=== PATIENT | male | born 1945 | race Caucasian/White ===

== ENCOUNTER 2017-04-25 14:30 | Emergency (ER) | payer MEDICARE | END 2017-04-25 17:01 | disposition home or self-care (01) | LOC: FTE 14:30 | DX: M79.671 Pain in right foot (principal); I12.9 Hypertensive chronic kidney disease with stage 1 through stage 4 chronic kidney disease, or unspecified chronic kidney disease; N18.9 Chronic kidney disease, unspecified; E11.22 Type 2 diabetes mellitus with diabetic chronic kidney disease; Z79.4 Long term (current) use of insulin; Z79.01 Long term (current) use of anticoagulants | CPT/HCPCS: 73630; 99283-25 ==

== ENCOUNTER 2018-06-07 06:18 | Observation (INO) | payer OTHER ==
[2018-06-07] MEDS: ASPIRIN 81 MG TAB PO (07:00)
[2018-06-07] MEDS: NITROGLYCERIN 2% 1 GM OINT PKT TD (07:00)
[2018-06-07] MEDS ORDERED: NITROGLYCERIN (SL) 0.4 MG TAB SL (07:00)
[2018-06-07 07:02] LABS: ADD MAN DIFF? NO
[2018-06-07 07:04] LABS: WHITE BLOOD COUNT 11.8 10^3/ul (4.8-10.8)
[2018-06-07 07:04] LABS: BASOPHIL # 0.1 10^3/ul (0.0-0.1); BASOPHILS % 0.6 % (0.0-2.0); HEMATOCRIT 44.3 % (42.0-52.0); HEMOGLOBIN 14.3 g/dl (14.0-18.0); LYMPHOCYTES # 0.8 10^3/ul (0.8-2.9); LYMPHOCYTES % 7.1 % (15.0-51.0); MEAN CORPUSCULAR HEMOGLOBIN 28.7 pg (29.0-33.0); MEAN CORPUSCULAR HGB CONC 32.3 g/dl (32.0-37.0); MEAN PLATELET VOLUME 10.6 fl (7.4-10.4); MONOCYTE # 0.7 10^3/ul (0.3-0.9); MONOCYTES % 5.8 % (0.0-11.0); NEUTROPHIL # 10.1 10^3/ul (1.6-7.5); NEUTROPHILS % 85.8 % (39.0-77.0); PLATELET COUNT 241 10^3/UL (140-415); RED BLOOD COUNT 4.98 10^6/ul (4.70-6.10)
[2018-06-07 07:22] LABS: ALANINE AMINOTRANSFERASE 13 IU/L (13-69); ALBUMIN 3.9 g/dl (3.3-4.9); ALBUMIN/GLOBULIN RATIO 1.08; ALKALINE PHOSPHATASE 108 IU/L (42-121); ANION GAP 13 (5-13); ASPARTATE AMINO TRANSFERASE 28 IU/L (15-46); BILIRUBIN,INDIRECT 0.5 mg/dl (0-1.1); BILIRUBIN,TOTAL 0.5 mg/dl (0.2-1.3); BLOOD UREA NITROGEN 38 mg/dl (7-20); CALCIUM 9.7 mg/dl (8.4-10.2); CARBON DIOXIDE 29 mmol/L (21-31); CHLORIDE 95 mmol/L (97-110); CREATININE 1.63 mg/dl (0.61-1.24); LIPASE 26 U/L (23-300); POTASSIUM 4.7 mmol/L (3.5-5.1); SODIUM 137 mmol/L (135-144); TOTAL PROTEIN 7.5 g/dl (6.1-8.1)
[2018-06-07 07:26] LABS: GLUCOSE 431 mg/dl (70-220)
[2018-06-07 07:34] LABS: TROPONIN-I 0.013 ng/ml (0.000-0.120)
[2018-06-07] MEDS: INSULIN LISPRO 100 UNIT/ML VIAL SC (07:43)
[2018-06-07] MEDS ORDERED: ACETAMINOPHEN 325 MG TAB PO (09:00)
[2018-06-07] MEDS ORDERED: ONDANSETRON 4 MG INJ IV (09:00)
[2018-06-07] MEDS ORDERED: GLUCAGON 1 MG INJ IM (12:00)
[2018-06-07] MEDS ORDERED: DEXTROSE 50% 50 ML SYRINGE IV ×2 (12:00)
[2018-06-07] MEDS ORDERED: GLUCOSE GEL 15 GRAM TUBE PO ×2 (12:00)
[2018-06-07] MEDS ORDERED: GLUCOSE GEL 15 GRAM TUBE BUCCAL (12:00)
[2018-06-07 12:11] LABS: HEMOGLOBIN A1C 10.9 % (0-5.9)
[2018-06-07] MEDS: METOCLOPRAMIDE 10 MG INJ IV ×3 (13:25→23:23)
[2018-06-07] MEDS: FAMOTIDINE 20 MG INJ IV (13:25)
[2018-06-07] MEDS: INSULIN ASPART [NOVOLOG] 3 ML PEN SC ×3 (13:26→21:00)
[2018-06-07] MEDS: SOD CHLORIDE 0.9% 1,000 ML IV ×2 (13:37→21:30)
[2018-06-07 14:50] LABS: CREATINE KINASE 45 IU/L (23-200)
[2018-06-07 15:03] LABS: CK INDEX 5.7; TROPONIN-I < 0.012 ng/ml (0.000-0.120)
[2018-06-07 15:17] LABS: CK-MB 2.57 ng/ml (0.0-2.4)
[2018-06-07 18:50] LABS: CREATINE KINASE 35 IU/L (23-200)
[2018-06-07 19:01] LABS: CK INDEX 6.4; CK-MB 2.24 ng/ml (0.0-2.4); TROPONIN-I < 0.012 ng/ml (0.000-0.120)
[2018-06-08] MEDS: ACCU-CHEK XX (01:18)
[2018-06-08 06:41] LABS: ADD MAN DIFF? NO
[2018-06-08 06:48] LABS: BASOPHIL # 0.1 10^3/ul (0.0-0.1); BASOPHILS % 0.7 % (0.0-2.0); EOSINOPHILS # 0.1 10^3/ul (0.0-0.5); EOSINOPHILS % 1.1 % (0.0-7.0); HEMATOCRIT 37.6 % (42.0-52.0); HEMOGLOBIN 12.2 g/dl (14.0-18.0); LYMPHOCYTES # 1.4 10^3/ul (0.8-2.9); LYMPHOCYTES % 20.5 % (15.0-51.0); MEAN CORPUSCULAR HEMOGLOBIN 28.8 pg (29.0-33.0); MEAN CORPUSCULAR HGB CONC 32.4 g/dl (32.0-37.0); MEAN CORPUSCULAR VOLUME 88.7 fl (82.0-101.0); MEAN PLATELET VOLUME 10.4 fl (7.4-10.4); MONOCYTE # 0.5 10^3/ul (0.3-0.9); MONOCYTES % 6.5 % (0.0-11.0); NEUTROPHILS % 70.8 % (39.0-77.0); PLATELET COUNT 188 10^3/UL (140-415); RED BLOOD COUNT 4.24 10^6/ul (4.70-6.10); RED CELL DISTRIBUTION WIDTH 13.2 % (11.5-14.5)
[2018-06-08 07:15] LABS: ANION GAP 6 (5-13); BLOOD UREA NITROGEN 22 mg/dl (7-20); CALCIUM 8.2 mg/dl (8.4-10.2); CARBON DIOXIDE 28 mmol/L (21-31); CHLORIDE 104 mmol/L (97-110); CREATININE 0.91 mg/dl (0.61-1.24); GLUCOSE 188 mg/dl (70-220); MAGNESIUM 1.9 mg/dl (1.7-2.5); PHOSPHORUS 2.8 mg/dl (2.5-4.9); SODIUM 138 mmol/L (135-144)
[2018-06-08] MEDS: FAMOTIDINE 20 MG INJ IV (08:15)
[2018-06-08] MEDS: INSULIN ASPART [NOVOLOG] 3 ML PEN SC ×3 (08:16→13:09)
[2018-06-08] MEDS ORDERED: BISACODYL (EC) 5 MG TAB PO (10:30)
[2018-06-08] MEDS: CHOLECALCIFEROL 1,000 UNIT TAB PO (11:17)
[2018-06-08] MEDS: GABAPENTIN 300 MG CAP PO (11:17)
[2018-06-08] MEDS: CLOPIDOGREL 75 MG TAB PO (11:17)
[2018-06-08] MEDS: BENAZEPRIL 10 MG TAB PO (11:20)
[2018-06-08] MEDS: CILOSTAZOL 100 MG TAB PO (13:05)
[2018-06-08] MEDS ORDERED: INSULIN GLARGINE [LANTus] (100 UNITS/ML) SYG SC (21:00)
[2018-06-08] MEDS ORDERED: ATORVASTATIN 10 MG TAB PO (21:00)
[2018-06-08] MEDS ORDERED: TAMSULOSIN (SR) 0.4 MG CAP PO (21:00)
[2018-06-09] MEDS ORDERED: PANTOPRAZOLE (EC) 40 MG TAB PO (06:00)
== END 2018-06-08 15:23 | disposition home or self-care (01) ==
LOC: E/R 06:18 → TEL 08:37
PROVIDERS: Family Medicine
DX: R07.9 Chest pain, unspecified (principal); I12.9 Hypertensive chronic kidney disease with stage 1 through stage 4 chronic kidney disease, or unspecified chronic kidney disease; E11.22 Type 2 diabetes mellitus with diabetic chronic kidney disease; N18.9 Chronic kidney disease, unspecified; E11.51 Type 2 diabetes mellitus with diabetic peripheral angiopathy without gangrene; I25.10 Atherosclerotic heart disease of native coronary artery without angina pectoris; N17.9 Acute kidney failure, unspecified; E78.5 Hyperlipidemia, unspecified; I42.9 Cardiomyopathy, unspecified; R11.2 Nausea with vomiting, unspecified; R19.7 Diarrhea, unspecified; Z79.4 Long term (current) use of insulin; Z87.891 Personal history of nicotine dependence; Z89.512 Acquired absence of left leg below knee
CPT/HCPCS: 36415; 71045; 80048; 80053; 82550; 82553; 82962; 83036; 83690; 83735; 84100; 84484; 85025; 93005; 96372; 99285-25; G0378